=== PATIENT | female | born 1990 | race American Indian/Alaskan Native ===

== ENCOUNTER 2021-10-13 13:26 | Emergency (ER) | payer OTHER, MEDICAID ==
[2021-10-13 14:00] VITALS: BP 112/67
[2021-10-13] MEDS ORDERED: IBUPROFEN 800 MG TAB PO ONE (17:08)
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
== END 2021-10-13 19:23 | disposition home or self-care (01) ==
LOC: ED 13:26
DX: S13.4XXA Sprain of ligaments of cervical spine, initial encounter (principal); F17.200 Nicotine dependence, unspecified, uncomplicated; Z90.49 Acquired absence of other specified parts of digestive tract; V89.2XXA Person injured in unspecified motor-vehicle accident, traffic, initial encounter; Y93.89 Activity, other specified; Y92.488 Other paved roadways as the place of occurrence of the external cause; Y99.8 Other external cause status
CPT/HCPCS: 72040; 99283